=== PATIENT | male | born 1970 | race Caucasian/White ===

== ENCOUNTER 2024-11-13 12:46 | Outpatient (CLI) | payer BC, SELFPAY ==
--- NOTE | 2024-11-13 13:00 | MR_ITS ---
[address] [address] Phone:?[phone] Fax:?[phone] Referring Physician Information: Brian Baird M.D. [address] [facility] [address] Phone:?[phone] Fax:?[phone] Patient:?Jhonatan Soto D.O.B:?1970 Sex:?Male Phone:?[phone] [facility] MRN:?[id number] Exam Date:?11/13/2024 EXAM: MRI OF THE LEFT SHOULDER CLINICAL INFORMATION: The patient is a 54-year-old with left shoulder pain. Evaluate for rotator cuff tear. PRIOR SURGERY: None reported. COMPARISON STUDIES: There are no prior studies available for comparison. TECHNICAL INFORMATION: Imaging was produced on a high-field, 1.5 Carmela MR scanner. Axial, coronal, and sagittal proton-density and T2 imaging of the left shoulder was performed in addition to coronal STIR imaging. FINDINGS: Articular/Extraarticular collections: Effusion: Mild to moderate. Subacromial/subdeltoid: Mild to moderate fluid is seen within the subacromial/subdeltoid bursa, in keeping with changes of bursitis. Subcoracoid: No evidence for bursitis. Osseous structures: Proximal humerus: There is cortical irregularity, subcortical edema, and subcortical cystic change seen involving the greater tuberosity region, in keeping with the rotator cuff pathology discussed below. There is no evidence for greater or lesser tuberosity fracture. No Hill-Sachs or reverse Hill-Sachs lesion is identified. Glenoid: No acute bony abnormality of the glenoid fossa or glenoid neck can be seen. Acromioclavicular joint: Mild to moderate changes of acromioclavicular joint arthrosis are present. Coracoacromial arch: Acromion morphology: Type II. No evidence for os acromiale. Acromiohumeral space: Mildly narrowed. Coracohumeral space: Within normal limits. Rotator cuff and deltoid: Supraspinatus: Moderate changes of supraspinatus tendinosis are present. There is superimposed full-thickness tearing involving the distal tendon fibers seen on coronal series 7 image 14 and on sagittal series 9 image 4. The area of full- thickness tearing measures 16 mm in anteroposterior dimension and 12 mm in mediolateral dimension. No atrophic changes of the supraspinatus muscle belly are present. Infraspinatus: Moderate infraspinatus tendinosis can be seen. There is no evidence for full or partial-thickness tearing. No atrophic changes of the infraspinatus muscle belly are identified. Teres minor: No evidence for tendinosis, tearing, or associated muscle belly atrophy. Subscapularis: Moderate subscapularis tendinosis can be seen. There is no evidence for full or partial-thickness tearing. No atrophic changes of the subscapularis muscle belly are noted. Deltoid: No evidence for strain or tearing. Biceps tendon: The intra-articular portion of the long head of the biceps tendon is poorly visualized. The biceps tendon is attenuated within the biceps sulcus. The findings are in keeping with an intra-articular rupture of the long head of the biceps tendon with subsequent retraction. Glenohumeral joint and labrum: Articular Cartilage: Chondromalacia and chondral thinning along the articular surfaces of the glenohumeral articulation can be seen. No definite osteoarthritic changes are present. Labrum: Degeneration, blunting, and irregularity of the glenoid labrum can be seen with linear tearing of the superior portion. No paralabral ganglion cyst formation is seen. Capsular Soft Tissues: No definite capsular abnormalities of the glenohumeral joint are seen. No evidence for capsular tearing is present and there are no MR signs of adhesive capsulitis. CONCLUSION: 1. Moderate supraspinatus, infraspinatus, and subscapularis tendinosis with full-thickness tearing of the distal supraspinatus tendon fibers as described above. 2. Intra-articular rupture of the long head of the biceps tendon with subsequent retraction. 3. 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 4. Chondromalacia and chondral thinning along the articular surfaces of the glenohumeral articulation. 5. Degeneration of the glenoid labrum with linear tearing of the superior portion. 6. Mild to moderate glenohumeral joint effusion and mild to moderate subacromial/subdeltoid bursal fluid. AEC Electronically signed on 11/13/2024 3:30:00 PM by Lloyd Fowler M.D.
== END 2024-11-13 12:47 | disposition home or self-care (01) ==
LOC: MRI 12:48
PROVIDERS: PCP Family Medicine; Visit Provider Orthopaedic Surgery
DX: M25.512 Pain in left shoulder (principal); M75.102 Unspecified rotator cuff tear or rupture of left shoulder, not specified as traumatic; M19.012 Primary osteoarthritis, left shoulder; M94.212 Chondromalacia, left shoulder; M25.412 Effusion, left shoulder
CPT/HCPCS: 73221